=== PATIENT | female | born 1945 | race Caucasian/White ===

== ENCOUNTER 2018-06-16 08:56 | Emergency (ER) | payer OTHER ==
[~2018-06-16 08:56] MED LIST: AMLO5TAB9 PO; ASPI-1012 PO; FLUT1BLS3 IH; LEVO150T11 PO; SIMV20TA6 PO; TRAM50TA4 PO; TYLENOL ARTHRITIS PO
== END 2018-06-16 10:09 | disposition home or self-care (01) ==
LOC: EDH 08:56
DX: M79.89 Other specified soft tissue disorders (principal); M79.641 Pain in right hand; J44.9 Chronic obstructive pulmonary disease, unspecified; Z88.6 Allergy status to analgesic agent; Z98.890 Other specified postprocedural states; Z87.891 Personal history of nicotine dependence
CPT/HCPCS: 73130

== ENCOUNTER → 2018-10-09 | Outpatient (CLI) | payer OTHER | END | disposition home or self-care (01) | LOC: RAH 13:46 | PROVIDERS: ATTEND Internal Medicine | DX: M51.16 Intervertebral disc disorders with radiculopathy, lumbar region (principal); M48.061 Spinal stenosis, lumbar region without neurogenic claudication | CPT/HCPCS: 72148 ==

== ENCOUNTER → 2018-11-28 | Outpatient (CLI) | payer OTHER | END | disposition home or self-care (01) | LOC: RAH 13:44 | PROVIDERS: ATTEND Internal Medicine | DX: R60.0 Localized edema (principal) | CPT/HCPCS: 93970 ==

== ENCOUNTER 2019-01-10 13:34 | Inpatient (IN) | payer OTHER ==
[~2019-01-10] VITALS: Ht 162.6 cm; Wt 82.6 kg
[~2019-01-10 13:34] MED LIST changes: +SIMV-43 PO; -SIMV20TA6 PO
[2019-01-10] MEDS ORDERED: ONDANSETRON HCL 4 MG/2 ML VIAL ONE (14:26)
[2019-01-10] MEDS ORDERED: ACETAMINOPHEN 325 MG TAB ONE (14:26)
[2019-01-10 14:34] LABS: BASOPHILS % (AUTO) 0.1 % (0.0-5.0); EOSINOPHILS % (AUTO) 0.5 % (0.0-8.0); HEMATOCRIT 42.1 % (36-48); LYMPHOCYTES % (AUTO) 2.9 % (21.0-51.0); MEAN CORPUSCULAR HEMOGLOBIN 29.5 pg (27.0-33.0); MEAN CORPUSCULAR HGB CONC 33.3 g/dL (32.0-36.0); MEAN CORPUSCULAR VOLUME 88.6 fL (79-99); MONOCYTES % (AUTO) 8.6 % (3.0-13.0); NEUTROPHILS % (AUTO) 87.9 % (40.0-77.0); PLATELET COUNT (AUTO) 200 K/uL (130-400); RED BLOOD CELL COUNT(AUTO) 4.75 MIL/uL (4.00-5.50); RED CELL DISTRIBUTION WIDTH 13.8 % (11.0-15.5); WHITE BLOOD COUNT (AUTO) 14.3 K/uL (4.8-10.8)
[2019-01-10] MEDS ORDERED: ZOSYN 3.375GM+NS 50ML 50 ML IV ONE (14:34)
[2019-01-10] MEDS ORDERED: SODIUM CHLORIDE 0.9% 1000ML 2,000 ML IV ONE (14:35)
[2019-01-10] MEDS ORDERED: SODIUM CHLORIDE 0.9% 500ML 500 ML IV ONE (14:35)
[2019-01-10] MEDS ORDERED: IPRATROPIUM/ALBUTEROL SULFATE 3 ML SOLUTION IH ONE (14:37)
[2019-01-10 14:47] LABS: INR 0.95 (0.85-1.15)
[2019-01-10 14:50] LABS: CREATININE 1.6 mg/dL (0.5-1.5); POTASSIUM 3.7 mmol/L (3.5-5.1)
[2019-01-10 14:54] LABS: BILIRUBIN,TOTAL 0.6 mg/dL (0.2-1.0); TOTAL PROTEIN, SERUM 7.8 g/dL (6.0-8.3)
[2019-01-10 17:15] LABS: APPEARANCE,URINE Clear (CLEAR); BILIRUBIN,URINE Negative (NEGATIVE); COLOR,URINE Yellow (YELLOW); GLUCOSE, URINE (UA) Negative (NEGATIVE); KETONES,URINE Negative (NEGATIVE); LEUKOCYTE ESTERASE ,URINE Trace (NEGATIVE); NITRATE,URINE Negative (NEGATIVE); OCCULT BLOOD,URINE Negative (NEGATIVE); PROTEIN,URINE Negative (NEGATIVE); UROBILINOGEN,URINE 0.2 mg/dL (0.2-1.0)
[2019-01-10 17:33] LABS: BACTERIA,URINE Rare /HPF (None Seen); RBC,URINE None Seen /HPF (0-1); SQUAMOUS EPITHELIAL CELL,UR None Seen /HPF (0-2); WBC,URINE 0-1 /HPF (0-1)
[2019-01-10] MEDS ORDERED: ACETAMINOPHEN 325 MG TAB PO PRN ×2 (20:45)
[2019-01-10] MEDS ORDERED: MORPHINE SULFATE 2 MG/ML 1ML SYG IV PRN (20:45)
[2019-01-10] MEDS ORDERED: HYDRALAZINE HCL 20 MG/ML VIAL IV PRN (20:45)
[2019-01-10] MEDS ORDERED: ONDANSETRON HCL 4 MG/2 ML VIAL IV PRN (20:45)
[2019-01-10] MEDS ORDERED: VANCOMYCIN PROTOCOL PER PHARMACY IV SCH (20:45)
[2019-01-10] MEDS ORDERED: VANCOMYCIN 1.75 GM in SODIUM CHLORIDE 0.9% 250 ML IV ONE (21:00)
[2019-01-10] MEDS: PHARMACY COMMUNICATION MISC SCH (21:00)
[2019-01-10] MEDS: CEFAZOLIN SODIUM 1 GM VIAL IVP SCH (21:00)
[2019-01-10] MEDS ORDERED: TRAMADOL HCL 50 MG TABLET PO PRN (21:00)
[2019-01-10] MEDS ORDERED: FAMOTIDINE/PF 20 MG/2 ML VIAL IV ONE (21:22)
[2019-01-10] MEDS ORDERED: SODIUM CHLORIDE 0.9% 1000ML 1,000 ML IV ONE (21:22)
[2019-01-10 22:00] VITALS: BP 139/89
--- NOTE | 2019-01-10 22:00 | NUR ---
ADDENDUM TO SKIN ASSESSMENT BILATERAL LE'S WITH GENERALIZED, DIFFUSE DRY ERYTHEMATOUS FLAT MACULAR LESIONS INTERSPERSED WITH RAISED DRY LESIONS FROM MID THIGH TO ANKLES.TRACE EDEMA TO LEFT LE, AND +1 pitting edema to right le , pedal pulses palpable to both dorsalis pedis otherwise ,with good sensation/motion. DRY LESION TO RIGHT MEDIAL ASPECT LE (MID SHAFT ), IRREGULAR IN SHAPE COVERING AREA APPROXIMATELY 10X6.5CM LIGHT YELLOWISH COLOR, NON-WEEPING AT THIS TIME. PHOTOGRAPHED AND POSTED IN CHART. RIGHT LE ELEVATED . PT INSTRUCTED WELL. Addendum: 01/11/19 at 0303 by DOREEN BRYANT RN RN Amended: Links added.
[2019-01-10] MEDS ORDERED: VANCOMYCIN 1GM+NS 250ML 500 ML IV ONE (22:40)
[2019-01-10] MEDS: SODIUM CHLORIDE 0.9% 1000ML 1,000 ML IV SCH (23:10)
[2019-01-10] MEDS: SIMVASTATIN 20 MG TABLET PO SCH (23:13)
[2019-01-10 23:33] VITALS: BP 146/83
[2019-01-11 03:42] VITALS: BP 132/78
[2019-01-11] MEDS: SODIUM CHLORIDE 0.9% 1000ML 1,000 ML IV SCH ×3 (04:24→21:12)
[2019-01-11 05:29] LABS: BASOPHILS % (AUTO) 0.1 % (0.0-5.0); EOSINOPHILS % (AUTO) 0.7 % (0.0-8.0); HEMATOCRIT 36.7 % (36-48); LYMPHOCYTES % (AUTO) 6.2 % (21.0-51.0); MEAN CORPUSCULAR HGB CONC 32.8 g/dL (32.0-36.0); MEAN CORPUSCULAR VOLUME 88.3 fL (79-99); MONOCYTES % (AUTO) 8.3 % (3.0-13.0); NEUTROPHILS % (AUTO) 84.7 % (40.0-77.0); PLATELET COUNT (AUTO) 192 K/uL (130-400); RED BLOOD CELL COUNT(AUTO) 4.16 MIL/uL (4.00-5.50); RED CELL DISTRIBUTION WIDTH 14.3 % (11.0-15.5); WHITE BLOOD COUNT (AUTO) 8.3 K/uL (4.8-10.8)
[2019-01-11 05:47] LABS: ALBUMIN 3.1 g/dL (3.5-5.0); BILIRUBIN,TOTAL 0.4 mg/dL (0.2-1.0); CREATININE 0.9 mg/dL (0.5-1.5); POTASSIUM 3.6 mmol/L (3.5-5.1); TOTAL PROTEIN, SERUM 6.4 g/dL (6.0-8.3)
[2019-01-11] MEDS: LEVOTHYROXINE 150 MCG TABLET PO SCH (06:10)
[2019-01-11] MEDS: CEFAZOLIN SODIUM 1 GM VIAL IVP SCH ×3 (06:45→21:01)
[2019-01-11 07:00] VITALS: BP 145/88
[2019-01-11] MEDS: (Fluticasone/Umeclidin/Vilanter (Trelegy Ellipta 100-62.5- IH SCH (09:00)
[2019-01-11] MEDS: AMLODIPINE BESYLATE 5 MG TAB PO SCH (09:46)
[2019-01-11] MEDS: FAMOTIDINE/PF 20 MG/2 ML VIAL IV SCH (09:46)
[2019-01-11] MEDS: ENOXAPARIN SODIUM 30 MG/0.3 ML SQ SCH (09:47)
[2019-01-11 11:00] VITALS: BP 144/88
[2019-01-11] MEDS ORDERED: DOCUSATE SODIUM 100 MG CAP PO SCH (11:15)
[2019-01-11] MEDS ORDERED: SENNOSIDES 8.6 MG TABLET PO SCH (11:15)
--- NOTE | 2019-01-11 15:05 | NUR ---
INITIAL: Met with pt this afternoon to discuss dcp. Pt mentions that she lives w her spouse. prior to admission she was independent w ambulation and ADLs. She has a rollator if needed. Per pt her spouse transports her where needed. Pt mentions that she feels safe and comfortable to return home at [place]. CM to continue to follow and wait for Md recommendations. Addendum: 01/11/19 at 1506 by SAMIA BENSON Amended: Links added.
[2019-01-11 16:00] VITALS: BP 141/71
[2019-01-11] MEDS ORDERED: VANCOMYCIN 1GM+NS 250ML 250 ML IV SCH (18:00)
[2019-01-11] MEDS ORDERED: GABA-529 PO (18:58)
[2019-01-11] MEDS ORDERED: LORA-868 PO (19:02)
[2019-01-11] MEDS ORDERED: UBID100C10 PO (19:02)
[2019-01-11] MEDS ORDERED: DIPH25TA51 PO (19:02)
[2019-01-11] MEDS ORDERED: B12/1TAB PO (19:02)
[2019-01-11 19:20] VITALS: BP 159/84
[2019-01-11] MEDS: SIMVASTATIN 20 MG TABLET PO SCH (21:00)
[2019-01-11] MEDS: PHARMACY COMMUNICATION MISC SCH (21:00)
[2019-01-12 00:22] VITALS: BP 131/64
[2019-01-12 04:25] VITALS: BP 139/64
[2019-01-12] MEDS: CEFAZOLIN SODIUM 1 GM VIAL IVP SCH (04:41)
[2019-01-12 05:29] LABS: HEMATOCRIT 36.4 % (36-48); MEAN CORPUSCULAR HEMOGLOBIN 29.2 pg (27.0-33.0); MEAN CORPUSCULAR HGB CONC 32.6 g/dL (32.0-36.0); MEAN CORPUSCULAR VOLUME 89.3 fL (79-99); NUCLEATED RED BLOOD CELLS 0.1 % (0.0-0.19); PLATELET COUNT (AUTO) 171 K/uL (130-400); RED BLOOD CELL COUNT(AUTO) 4.07 MIL/uL (4.00-5.50); RED CELL DISTRIBUTION WIDTH 13.9 % (11.0-15.5); WHITE BLOOD COUNT (AUTO) 4.7 K/uL (4.8-10.8)
[2019-01-12 05:38] LABS: BAND NEUTROPHILS % (MANUAL) 8 % (0-2); EOSINOPHILS % (MANUAL) 4 % (1-6); LYMPHOCYTES % (MANUAL) 28 % (22-44); MAN.DIFF COMMENT-IMPRESSION MANUAL DIFFERENTIAL; MONOCYTES % (MANUAL) 4 % (2-9); PLATELET MORPHOLOGY COMMENT ADEQUATE; SEGMENTED NEUTROPHILS % 56 % (40-70)
[2019-01-12 05:42] LABS: CREATININE 0.9 mg/dL (0.5-1.5); POTASSIUM 3.5 mmol/L (3.5-5.1)
[2019-01-12] MEDS: LEVOTHYROXINE 150 MCG TABLET PO SCH (06:26)
[2019-01-12] MEDS: SODIUM CHLORIDE 0.9% 1000ML 1,000 ML IV SCH (06:27)
[2019-01-12 07:30] VITALS: BP 155/94
[2019-01-12] MEDS: AMLODIPINE BESYLATE 5 MG TAB PO SCH (08:34)
[2019-01-12] MEDS: ENOXAPARIN SODIUM 30 MG/0.3 ML SQ SCH (08:35)
[2019-01-12] MEDS: FAMOTIDINE/PF 20 MG/2 ML VIAL IV SCH (08:35)
[2019-01-12] MEDS: (Fluticasone/Umeclidin/Vilanter (Trelegy Ellipta 100-62.5- IH SCH (09:00)
[2019-01-12 11:08] VITALS: BP 142/75
[2019-01-12] MEDS: ZOSYN 3.375GM+NS 50ML 50 ML IV SCH ×2 (14:26→21:06)
[2019-01-12] MEDS: VANCOMYCIN 1GM+NS 250ML 250 ML IV SCH (18:45)
[2019-01-12 19:26] VITALS: BP 149/75
[2019-01-12] MEDS: PHARMACY COMMUNICATION MISC SCH (20:32)
[2019-01-12] MEDS: SIMVASTATIN 20 MG TABLET PO SCH (21:06)
[2019-01-13] VITALS (7 sets, daily range): BP systolic 137–155; BP diastolic 68–98
[2019-01-13] MEDS: ZOSYN 3.375GM+NS 50ML 50 ML IV SCH ×3 (04:09→20:32)
[2019-01-13] MEDS: LEVOTHYROXINE 150 MCG TABLET PO SCH (05:34)
[2019-01-13] MEDS: PHARMACY COMMUNICATION MISC SCH ×2 (09:00→20:33)
[2019-01-13] MEDS: FAMOTIDINE/PF 20 MG/2 ML VIAL IV SCH (10:17)
[2019-01-13] MEDS: AMLODIPINE BESYLATE 5 MG TAB PO SCH (10:18)
[2019-01-13] MEDS: ENOXAPARIN SODIUM 30 MG/0.3 ML SQ SCH (10:18)
[2019-01-13] MEDS: (Fluticasone/Umeclidin/Vilanter (Trelegy Ellipta 100-62.5- IH SCH (10:21)
[2019-01-13] MEDS: VANCOMYCIN 1GM+NS 250ML 250 ML IV SCH (10:28)
[2019-01-13] MEDS ORDERED: HONEY 1 APPL/ML TUBE TP ONE (16:33)
--- NOTE | 2019-01-13 16:58 | NUR ---
[facility] CONSULT PATIENT ASSESSED REQUESTED: PATIENT PRESENTS WITH CELLULITIS/ VENOUS ULCER TO RIGHT LEG MEDIAL. [facility] RECOMMENDATIONS SUBMITTED. Addendum: 01/13/19 at 1659 by QUETA BAINS LVN LVN W Amended: Links added.
[2019-01-13] MEDS: SIMVASTATIN 20 MG TABLET PO SCH (20:32)
[2019-01-14 04:02] VITALS: BP 130/71
[2019-01-14] MEDS: ZOSYN 3.375GM+NS 50ML 50 ML IV SCH ×2 (04:07→11:33)
[2019-01-14] MEDS: LEVOTHYROXINE 150 MCG TABLET PO SCH (06:00)
[2019-01-14] MEDS: VANCOMYCIN 1GM+NS 250ML 250 ML IV SCH (06:00)
[2019-01-14 07:57] VITALS: BP 134/86
[2019-01-14] MEDS: PHARMACY COMMUNICATION MISC SCH (09:00)
[2019-01-14] MEDS ORDERED: HONEY 1 APPL/ML TUBE TP SCH (09:00)
[2019-01-14] MEDS: (Fluticasone/Umeclidin/Vilanter (Trelegy Ellipta 100-62.5- IH SCH (09:01)
[2019-01-14] MEDS: AMLODIPINE BESYLATE 5 MG TAB PO SCH (09:05)
[2019-01-14] MEDS: ENOXAPARIN SODIUM 30 MG/0.3 ML SQ SCH (09:05)
[2019-01-14] MEDS: FAMOTIDINE/PF 20 MG/2 ML VIAL IV SCH (09:05)
[2019-01-14 11:28] VITALS: BP 139/74
--- NOTE | 2019-01-14 13:20 | NUR ---
CM Note: [facility] pending approval CM met with pt discussed MD recommendations for home w/HH re: woundcare, continuity of care. Pt agreeable, [facility] signed for [facility]. Faxed order and clinicals to [facility], confirmation received. Spoke to Maikol w/[facility], pending to received clinicals and order. Pt pending approval at this time. Primary nurse aware. CM to cont to follow up.
[2019-01-14] MEDS ORDERED: COMP1EAC MC (15:07)
[2019-01-14 15:10] LABS: HEMATOCRIT 35.3 % (36-48); MEAN CORPUSCULAR HEMOGLOBIN 28.4 pg (27.0-33.0); MEAN CORPUSCULAR HGB CONC 32.3 g/dL (32.0-36.0); MEAN CORPUSCULAR VOLUME 87.8 fL (79-99); PLATELET COUNT (AUTO) 223 K/uL (130-400); RED BLOOD CELL COUNT(AUTO) 4.02 MIL/uL (4.00-5.50); RED CELL DISTRIBUTION WIDTH 13.2 % (11.0-15.5); WHITE BLOOD COUNT (AUTO) 4.4 K/uL (4.8-10.8)
[2019-01-14 15:31] LABS: CREATININE 0.9 mg/dL (0.5-1.5); POTASSIUM 3.3 mmol/L (3.5-5.1)
[2019-01-14 15:36] LABS: ALBUMIN 3.3 g/dL (3.5-5.0); BILIRUBIN,TOTAL 0.3 mg/dL (0.2-1.0); TOTAL PROTEIN, SERUM 6.9 g/dL (6.0-8.3)
--- NOTE | 2019-01-14 15:56 | NUR ---
CM Note: [facility] approval CM spoke to Giovana robbins/[facility]. Pt has approval. HH aware pt will follow up with Dr Zapien on 02/18/[address] Willoughby on 02/06/19. Pt safe to DC to home via private car once MD clear. Primary nurse aware. CM to cont to follow up.
[2019-01-14 16:00] VITALS: BP 137/73
--- NOTE | 2019-01-14 16:27 | NUR ---
REPORT CALLED TO HOME [facility] REPORT GIVEN TO ARNEL GRAHAM LVN, STATED RN WILL BE OUT TO SEE PT TOMORROW
[2019-01-14] MEDS ORDERED: POTASSIUM CHLORIDE 20 MEQ ERTAB PO SCH (17:45)
== END 2019-01-14 18:25 | disposition home health service (06) | DRG 872 ==
LOC: EDH 13:34 → EDHIP 20:39 → 3CH 21:53
PROVIDERS: ADMIT Internal Medicine; ATTEND Internal Medicine
DX: A41.9 Sepsis, unspecified organism (principal); L03.115 Cellulitis of right lower limb; N17.9 Acute kidney failure, unspecified; L03.116 Cellulitis of left lower limb; L97.919 Non-pressure chronic ulcer of unspecified part of right lower leg with unspecified severity; L97.929 Non-pressure chronic ulcer of unspecified part of left lower leg with unspecified severity; R65.20 Severe sepsis without septic shock; I10 Essential (primary) hypertension; E03.9 Hypothyroidism, unspecified; E66.9 Obesity, unspecified; J44.9 Chronic obstructive pulmonary disease, unspecified; Z96.641 Presence of right artificial hip joint; M19.90 Unspecified osteoarthritis, unspecified site; Z68.31 Body mass index [BMI] 31.0-31.9, adult; Z87.891 Personal history of nicotine dependence; Z87.440 Personal history of urinary (tract) infections; Z83.3 Family history of diabetes mellitus; Z88.5 Allergy status to narcotic agent
CPT/HCPCS: 36415; 71045; 80048; 80053; 80202; 81001; 83605; 84145; 85025; 85027; 85610; 85730; 87040; 87088; 87804; 93005; 93926; 94640; 99291; G0378; J0690; J1650; J2405; J2543; J3370; J3490; J7030; J7040

== ENCOUNTER 2022-06-14 12:40 | Observation (INO) | payer MEDICARE ==
[~2022-06-14] VITALS: Ht 162.6 cm; Wt 75.7 kg
[~2022-06-14 12:40] MED LIST changes: +AMLO-257 PO; -AMLO5TAB9 PO; +B12/1TAB PO; +COMP1EAC MC; +DIPH25TA51 PO; +GABA-529 PO; +LORA-868 PO; +UBID100C10 PO
[2022-06-14] MEDS ORDERED: ASPIRIN 81MG CHEW TAB PO ONE (13:30)
[2022-06-14] MEDS ORDERED: LORAZEPAM 2 MG/ML 1 ML VIAL IVP ONE (13:30)
[2022-06-14 13:45] LABS: BASOPHILS % (AUTO) 0.6 % (0.0-5.0); HEMATOCRIT 41.1 % (36-48); LYMPHOCYTES % (AUTO) 9.8 % (21.0-51.0); MEAN CORPUSCULAR HEMOGLOBIN 32.1 pg (27.0-33.0); MEAN CORPUSCULAR VOLUME 91.7 fL (79-99); MONOCYTES % (AUTO) 13.1 % (3.0-13.0); PLATELET COUNT (AUTO) 186 K/uL (130-400); RED BLOOD CELL COUNT(AUTO) 4.48 MIL/uL (4.00-5.50); RED CELL DISTRIBUTION WIDTH 11.4 % (11.0-15.5); WHITE BLOOD COUNT (AUTO) 7.9 K/uL (4.8-10.8)
[2022-06-14] MEDS ORDERED: SOLU-MEDROL 125MG VIAL IVP ONE (14:00)
[2022-06-14 14:02] LABS: CREATININE 0.8 mg/dL (0.5-1.5); POTASSIUM 4.3 mmol/L (3.5-5.1)
[2022-06-14 14:04] LABS: ALBUMIN 4.2 g/dL (3.5-5.0); TOTAL PROTEIN, SERUM 7.7 g/dL (6.0-8.3)
[2022-06-14] MEDS ORDERED: KETOROLAC 15MG/ML VIAL (15MG/ML) ONE (15:42)
[2022-06-14] MEDS ORDERED: 0.9%NACL 1000ML 1,000 ML IV ONE (16:00)
[2022-06-14] MEDS ORDERED: KETOROLAC 15MG/ML VIAL (15MG/ML) IV ONE (16:00)
[2022-06-14] MEDS ORDERED: CEFTRIAXONE 1G VIAL IVPB ONE ×2 (16:30→17:00)
[2022-06-14] MEDS ORDERED: AZITHROMYCIN 500MG+NS 250ML IVPB SCH ×2 (16:30→17:00)
[2022-06-14] MEDS ORDERED: IPRATROPIUM/ALBUTEROL SULFATE 3 ML SOLUTION IH ONE (16:30)
[2022-06-14] MEDS: SOLU-MEDROL 40MG VIAL IVP SCH ×2 (17:00→17:37)
[2022-06-14] MEDS ORDERED: ONDANSETRON 4MG INJ IVP PRN (17:30)
[2022-06-14] MEDS ORDERED: ACETAMINOPHEN 325 MG TAB PO PRN (17:30)
[2022-06-14 17:35] LABS: APPEARANCE,URINE CLEAR (CLEAR); BILIRUBIN,URINE NEGATIVE (NEGATIVE); COLOR,URINE COLORLESS (YELLOW); GLUCOSE, URINE (UA) NEGATIVE (NEGATIVE); KETONES,URINE NEGATIVE (NEGATIVE); LEUKOCYTE ESTERASE ,URINE 250 Leu/uL (NEGATIVE); NITRATE,URINE NEGATIVE (NEGATIVE); OCCULT BLOOD,URINE NEGATIVE (NEGATIVE); PROTEIN,URINE NEGATIVE (NEGATIVE); UROBILINOGEN,URINE 0.2 mg/dL (0.2-1.0)
[2022-06-14 17:42] LABS: BACTERIA,URINE MOD /HPF (None Seen); MUCUS,URINE FEW LPF (None Seen); SQUAMOUS EPITHELIAL CELL,UR FEW /HPF (0-2)
[2022-06-14] MEDS: BUDESONIDE 0.5 MG/2 ML INH IH SCH (19:16)
[2022-06-14] MEDS: FAMOTIDINE 20MG VIAL IV SCH (21:07)
[2022-06-14 22:51] VITALS: BP 142/84
[2022-06-15] MEDS: SOLU-MEDROL 40MG VIAL IVP SCH ×2 (00:37→09:08)
[2022-06-15] MEDS: ATENOLOL 25 MG TABLET PO SCH ×2 (00:37→09:08)
[2022-06-15 03:34] VITALS: BP 145/77
[2022-06-15 05:29] LABS: BASOPHILS % (AUTO) 0.3 % (0.0-5.0); HEMATOCRIT 36.7 % (36-48); LYMPHOCYTES % (AUTO) 8.9 % (21.0-51.0); MEAN CORPUSCULAR HEMOGLOBIN 31.9 pg (27.0-33.0); MEAN CORPUSCULAR HGB CONC 34.9 g/dL (32.0-36.0); MEAN CORPUSCULAR VOLUME 91.5 fL (79-99); MONOCYTES % (AUTO) 1.6 % (3.0-13.0); NEUTROPHILS % (AUTO) 88.9 % (40.0-77.0); PLATELET COUNT (AUTO) 156 K/uL (130-400); RED BLOOD CELL COUNT(AUTO) 4.01 MIL/uL (4.00-5.50); RED CELL DISTRIBUTION WIDTH 11.4 % (11.0-15.5); WHITE BLOOD COUNT (AUTO) 3.7 K/uL (4.8-10.8)
[2022-06-15 05:49] LABS: ALBUMIN 3.4 g/dL (3.5-5.0); CREATININE 0.7 mg/dL (0.5-1.5); MAGNESIUM 1.9 mg/dL (1.80-2.40); TOTAL PROTEIN, SERUM 6.7 g/dL (6.0-8.3)
[2022-06-15] MEDS: BUDESONIDE 0.5 MG/2 ML INH IH SCH (06:34)
[2022-06-15 08:00] VITALS: BP 144/78
[2022-06-15] MEDS ORDERED: DOXY100C5 PO (08:52)
[2022-06-15] MEDS ORDERED: PRED20TA3 PO (08:54)
[2022-06-15] MEDS ORDERED: ENOXAPARIN SODIUM 40 MG/0.4 ML SYRINGE SQ SCH (09:00)
[2022-06-15 09:08] VITALS: BP 144/78
[2022-06-15] MEDS: FAMOTIDINE 20MG VIAL IV SCH (09:08)
== END 2022-06-15 11:30 | disposition home or self-care (01) ==
LOC: EDH 12:40 → INTOOBSV 16:45 → EDHIP 16:45 → 4CH 21:31
PROVIDERS: ADMIT Internal Medicine; ATTEND Internal Medicine
DX: J96.21 Acute and chronic respiratory failure with hypoxia (principal); Z20.822 Contact with and (suspected) exposure to COVID-19; J44.1 Chronic obstructive pulmonary disease with (acute) exacerbation; I10 Essential (primary) hypertension; J18.9 Pneumonia, unspecified organism; E78.5 Hyperlipidemia, unspecified; E03.9 Hypothyroidism, unspecified; Q33.3 Agenesis of lung; Z99.81 Dependence on supplemental oxygen; Z79.899 Other long term (current) drug therapy; Z98.890 Other specified postprocedural states; Z79.82 Long term (current) use of aspirin; Z90.49 Acquired absence of other specified parts of digestive tract
CPT/HCPCS: 99285; 96375; 96365; 71045; 87635; 96361; 96366; 96376 ×2; 84484; 80053 ×2; 83880; 85025 ×2; 87088; 87880; 87804 ×2; 83605; 81001; 36415 ×2; 93005; 94664; 96372; 83735; 94640 ×3; C9803; J3490 ×2; J2930; J0696; J2060; J2920 ×3; J0456; J1885; G0378; J1650